=== PATIENT | female | born 1975 | race African-American/Black ===

== ENCOUNTER 2017-04-23 16:39 | Emergency (ER) | payer OTHER ==
[2017-04-23 16:52] VITALS: BP 144/82; PULSE 82; TEMP 99.1; BMI 37.6
[2017-04-23] MEDS ORDERED: DEXAMETHASONE SOD PHOSPHATE 10 MG/1 ML VIAL IM ONE (18:15)
[2017-04-23] MEDS ORDERED: DEXAMETHASONE SOD PHOSPHATE 10 MG/1 ML VIAL ONE (18:18)
--- NOTE | 2017-04-23 18:20 | PDOC ---
*Physical Exam - Vital Signs Last Vital Signs Temp Pulse Resp BP Pulse Ox 99.1 F 82 18 144/82 99 04/23/17 16:45 04/23/17 16:45 04/23/17 16:45 04/23/17 16:45 04/23/17 16:45 - Physical Exam General Appearance: Yes: Nourished, Appropriately Dressed, Apparent Distress, Mild Distress HEENT: positive: LIBERTY, TMs Normal Neck: positive: Tender, Supple, Lymphadenopathy (R) Respiratory/Chest: positive: Lungs Clear Cardiovascular: positive: Regular Rhythm *DC/Admit/Observation/Transfer Diagnosis at time of Disposition: Contact dermatitis and eczema - Discharge Dispostion Disposition: HOME Condition at time of disposition: Stable Admit: No - Referrals Referrals: Cheri Emerson MD [Primary Care Provider] - - Patient Instructions Printed Discharge Instructions: DI for Contact Dermatitis Additional Instructions: Rest, keep cool and dry- avoid strenuous activity or hot /humid environments Less hot showers, no abrasive soaps May use heavy creams like Eucerin or Cetaphil to keep skin moist May apply Aveeno, calamine lotion, [id number] hydrocortisone creams as needed for symptoms May use Benadryl at night for antihistamine, Zyrtec/ Clarice or Claritin for daytime antihistamine use to help with itching Try to identify cause for rash and avoid exposures Followup with PMD in one week if no resolution Make appointment with fisheries technical officer for evaluation when possible Rest, keep cool and dry- avoid strenuous activity or hot /humid environments Less hot showers, no abrasive soaps May use heavy creams like Eucerin or Cetaphil to keep skin moist , Vaseline currently recommended for better hydrating purpose May use Benadryl at night for antihistamine, Zyrtec/ Clarice or Claritin for daytime antihistamine use to help with itching Bleach baths, one half cup in a full tub of water creating a dilute solution and soaking for proximally 10 minutes. This chlorine is less strong than swimming pool if properly diluted. Will not discolor skin, avoid splashing in face or eyes. This will decolonize/decontaminate skin from the bacteria that may be causing worsened eczema and itching. Some doctors recommend daily until severe episode is resolving then twice a week until healed Followup with PMD in one week if no resolution Make appointment with fisheries technical officer for evaluation when possible - Post Discharge Activity Forms/Work/School Notes: Back to Work
--- NOTE | 2017-04-23 18:26 | PDOC ---
History of Present Illness - General Chief Complaint: Rash Stated Complaint: ALLERGIC REACTION Time Seen by Provider: 04/23/17 16:59 History Source: Patient Exam Limitations: No Limitations - History of Present Illness Initial Comments: 04/23/17 18:20 Patient states had an outbreak of an itching rash to her face and thought to be related to eczema outbreak to her elbows and knees. Was seen at an urgent care as this rash to her face progressively worsened with some swelling to her lips and was given Bactroban ointment. States use the Bactroban last night and face became swollen and burning. Woke up this morning to note facial swelling eyelid swelling lip swelling. Denies tongue swelling or airway problems however feels that rashes extended. Took 4-25 mg Benadryl tablets this morning, fell asleep and woke up with continued rash to face however denies shortness of breath, cough, or airway difficulty. Timing/Duration: unsure Severity: mild Associated Symptoms: reports: fever/chills Past History - Travel Traveled outside of the country in the last 30 days: No Close contact w/someone who was outside of country & ill: No - Past Medical History Allergies/Adverse Reactions: Allergies Allergy/AdvReac Type Severity Reaction Status Date / Time No Known Allergies Allergy Verified 04/23/17 16:52 Home Medications: Ambulatory Orders NK [No Known Home Medication] 04/23/17 COPD: No HTN: Yes - Immunization History Td Vaccination: No Immunization Up to Date: No - Suicide/Smoking/Psychosocial Hx Smoking Status: No Smoking History: Never smoked Number of Cigarettes Smoked Daily: 0 Drug/Substance Use Hx: No Substance Use Type: None Review of Systems - Review of Systems Able to Perform ROS?: Yes Is the patient limited Malay proficient: Yes Constitutional: Yes: Symptoms Reported, See HPI, Malaise. No: Fever HEENTM: Yes: Symptoms Reported, See HPI Respiratory: Yes: Symptoms reported, See HPI, Cough. No: Wheezing Musculoskeletal: Yes: Symptoms Reported Neurological: Yes: Symptoms reported *Physical Exam - Vital Signs Last Vital Signs Temp Pulse Resp BP Pulse Ox 99.1 F 82 18 144/82 99 04/23/17 16:45 04/23/17 16:45 04/23/17 16:45 04/23/17 16:45 04/23/17 16:45 - Physical Exam General Appearance: Yes: Nourished, Appropriately Dressed, Mild Distress HEENT: positive: LIBERTY, Normal ENT Inspection, TMs Normal, Pharynx Normal, Other (maculopapular confluent rash covering all of his colon area extending from top of nose and down submandibular area. And from ear to ear. Is area patient states applied Bactroban. Lips are swollen, has some mild swelling to her phani / nasal folds bilaterally, mild eyelid swelling) Neck: positive: Tender, Supple, Lymphadenopathy (R), Lymphadenopathy (L) Respiratory/Chest: positive: Lungs Clear, Normal Breath Sounds. negative: Chest Tender, Respiratory Distress, Rhonchi, Stridor, Wheezing Gastrointestinal/Abdominal: positive: Soft. negative: Tender Musculoskeletal: positive: Normal Inspection Extremity: positive: Normal Capillary Refill, Normal Inspection, Normal Range of Motion Integumentary: positive: Pale, Rash, Other (excoriation to elbow creases and posterior fossa bilateral knees consistent with appearance of keritinzied eczema rash) Neurologic: positive: umbrella tipper hand II-XII NML intact, Fully Oriented, Alert, Normal Mood/ Affect, Normal Response, Motor Strength 5/5 *DC/Admit/Observation/Transfer Diagnosis at time of Disposition: Contact dermatitis and eczema - Discharge Dispostion Disposition: HOME Condition at time of disposition: Stable Admit: No - Referrals Referrals: Cheri Emerson MD [Primary Care Provider] - - Patient Instructions Printed Discharge Instructions: DI for Contact Dermatitis Additional Instructions: Rest, keep cool and dry- avoid strenuous activity or hot /humid environments Less hot showers, no abrasive soaps May use heavy creams like Eucerin or Cetaphil to keep skin moist May apply Aveeno, calamine lotion, [id number] hydrocortisone creams as needed for symptoms May use Benadryl at night for antihistamine, Zyrtec/ Clarice or Claritin for daytime antihistamine use to help with itching Try to identify cause for rash and avoid exposures Followup with PMD in one week if no resolution Make appointment with geospatial engineer for evaluation when possible Rest, keep cool and dry- avoid strenuous activity or hot /humid environments Less hot showers, no abrasive soaps May use heavy creams like Eucerin or Cetaphil to keep skin moist , Vaseline currently recommended for better hydrating purpose May use Benadryl at night for antihistamine, Zyrtec/ Clarice or Claritin for daytime antihistamine use to help with itching Bleach baths, one half cup in a full tub of water creating a dilute solution and soaking for proximally 10 minutes. This chlorine is less strong than swimming pool if properly diluted. Will not discolor skin, avoid splashing in face or eyes. This will decolonize/decontaminate skin from the bacteria that may be causing worsened eczema and itching. Some doctors recommend daily until severe episode is resolving then twice a week until healed Followup with PMD in one week if no resolution Make appointment with geospatial engineer for evaluation when possible - Post Discharge Activity Forms/Work/School Notes: Back to Work
== END 2017-04-23 18:34 | disposition home or self-care (01) ==
LOC: JERFT 16:39
PROC: 3E0233Z Introduction of Anti-inflammatory into Muscle, Percutaneous Approach (ICD-10-PCS; principal; 2017-04-23)
DX: L25.9 Unspecified contact dermatitis, unspecified cause (principal)
CPT/HCPCS: 99281-25

== ENCOUNTER 2021-10-05 00:38 | Emergency (ER) | payer OTHER ==
[2021-10-05 01:20] VITALS: BP 141/93; PULSE 82; TEMP 98; BMI 38.4
[2021-10-05] MEDS ORDERED: PSEUDOEPHEDRINE HCL 30 MG TABLET PO ONE (02:34)
[2021-10-05] MEDS ORDERED: PSEUDOEPHEDRINE HCL 60 MG TABLET ONE (03:17)
== END 2021-10-05 04:34 | disposition home or self-care (01) ==
LOC: JER 00:38
DX: R09.81 Nasal congestion (principal)
CPT/HCPCS: 0241U-QW; 71046-TC-FY; 99284-25